=== PATIENT | male | born 1965 | race Caucasian/White ===

== ENCOUNTER 2016-04-14 08:05 | Inpatient (IN) | payer OTHER ==
[2016-04-14 10:57] VITALS: BMI 23.7
--- NOTE | 2016-04-14 12:36 | HP ---
COWS - Scale Resting Pulse: 1= [place] 81-100 Sweatin= Chills/Flushing Restless Observation: 3= Extraneous Movement Pupil Size: 2= Moderately Dilated Bone or Joint Aches: 4=Acute Joint/Muscle Pain Runny Nose/ Eye Tearin= Runny Nose/Eyes GI Upset > 30mins: 2= Nausea/Diarrhea (NO DIARRHEA) Tremor Observation: 1= Tremor [place], Not Seen Yawning Observation: 1= 1-2x During Session Anxiety or Irritability: 2=Irritable/Anxious Goose Flesh Skin: 0=Smooth Skin COWS Score: 19 Admission ROS S - HPI Chief Complaint: DETOX TX FOR HEROIN,COCAINE AND MARIJUANA DEPENDENCE Allergies/Adverse Reactions: Allergies Allergy/AdvReac Type Severity Reaction Status Date / Time cheese Allergy Mild Nausea Verified 04/14/16 10:43 No Known Drug Allergies Allergy Verified 04/14/16 10:43 History of Present Illness: 50 Y/O MALE WITH A HX OF HEROIN,COCAINE AND MARIJUANA DEPENDENCE SEEKING DETOX [place]. Exam Limitations: No Limitations - Ebola screening Have you traveled outside of the country in the last 21 days: No Have you had contact with anyone from an Ebola affected area: No Have you been sick,other than usual withdrawal symptoms: No Do you have a fever: No - Review of Systems Constitutional: Chills, Night Sweats, Changes in sleep, Unintentional Wgt. Loss EENT: reports: Nose Congestion Respiratory: reports: No Symptoms reported Cardiac: reports: No Symptoms Reported GI: reports: Constipated, Diarrhea, Nausea, Vomiting : reports: No Symptoms Reported Musculoskeletal: reports: Back Pain, Joint Pain, Muscle Pain Integumentary: reports: No Symptoms Reported Neuro: reports: Headache, Unsteady Gait, Dizziness, Other (HX SEVERE RLS-- RESTLESS LEG SYNDROME) Endocrine: reports: No Symptoms Reported Hematology: reports: No Symptoms Reported Psychiatric: reports: Orientated x3, Agitated, Anxious Other Systems: Reviewed and Negative Patient History - Patient Medical History Hx Anemia: No Hx Asthma: No Hx Chronic Obstructive Pulmonary Disease (COPD): No Hx Cancer: No Hx Cardiac Disorders: No Hx Congestive Heart Failure: No Hx Hypertension: No Hx Hypercholesterolemia: No Hx Pacemaker: No HX Cerebrovascular Accident: No Hx Seizures: No Hx Dementia: No Hx Diabetes: No Hx Gastrointestinal Disorders: No Hx Liver Disease: No Hx Genitourinary Disorders: No Hx Sexually Transmitted Disorders: No Hx Renal Disease (ESRD): No Hx Thyroid Disease: No Hx Human Immunodeficiency Virus (HIV): No (NEGATIVE HX) Hx Hepatitis C: No Hx Depression: No Hx Suicide Attempt: No (DENIES) Hx Bipolar Disorder: No Hx Schizophrenia: No - Patient Surgical History Past Surgical History: Yes Hx Neurologic Surgery: No Hx Cataract Extraction: No Hx Cardiac Surgery: No Hx Lung Surgery: No Hx Breast Surgery: No Hx Breast Biopsy: No Hx Abdominal Surgery: No Hx Appendectomy: Yes (IN 1999) Hx Cholecystectomy: No Hx Genitourinary Surgery: No Hx Section: No Hx Orthopedic Surgery: No Anesthesia Reaction: No - PPD History Previous Implant?: Yes Documented Results: Negative w/o proof Date: 07/29/14 PPD to be Administered?: Yes - Reproductive History Patient is a Female of Child Bearing Age (11 -55 yrs old): No (MALE) - Smoking Cessation Smoking history: Current every day smoker Have you smoked in the past 12 months: Yes Aproximately how many cigarettes per day: 10 Cigars Per Day: 0 Hx Chewing Tobacco Use: No Initiated information on smoking cessation: Yes 'Breaking Loose' booklet given: 04/14/16 - Substance & Tx. History Hx Alcohol Use: Yes ("BEER SOMETIMES BUT NOT MY CHOICE") Hx Substance Use: Yes (HEROIN/COCAINE/MARIJUANA) Substance Use Type: Cocaine, Heroin, Marijuana Hx Substance Use Treatment: Yes ([facility] DETOX) - Substances Abused Heroin Route: Inhalation Frequency: Daily Amount used: 7-10 bags Age of first use: 47 Date of Last Use: 04/13/16 Cocaine Route: Inhalation Frequency: Daily Amount used: $100 Age of first use: 17 Date of Last Use: 04/13/16 Marijuana Route: Smoking Frequency: Daily Amount used: $10 Age of first use: 16 Date of Last Use: 04/13/16 Family Disease History - Family Disease History Family History: Denies (ADOPTED--"I NEVER MET MY REAL FAMILY".) Admission Physical Exam S - Vital Signs Vital Signs: Vital Signs - 24 hr 04/14/16 10:45 Temperature 98.2 F Pulse Rate 82 Respiratory 20 Rate Blood Pressure 127/71 - Physical General Appearance: Yes: Moderate Distress, Irritable, Anxious HEENTM: Yes: EOMI, Normocephalic, SUKHDEEP, Pharynx Normal Respiratory: Yes: Chest Non-Tender, Lungs Clear, Normal Breath Sounds, No Respiratory Distress Neck: Yes: Supple, Trachea in good position Cardiology: Yes: Regular Rhythm, Regular Rate, S1, S2 Abdominal: Yes: Normal Bowel Sounds, Non Tender, Flat, Soft Genitourinary: Yes: Other (N/C) Back: Yes: Within Normal Limits Musculoskeletal: Yes: full range of Motion, Gait Steady Extremities: Yes: Normal Range of Motion, Non-Tender 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: 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: 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, Fully Oriented, Alert, Motor Strength 5/5 Integumentary: Yes: Dry, Warm Lymphatic: Yes: Within Normal Limits - Diagnostic (1) Alcohol dependence with uncomplicated withdrawal Current Visit: No Status: Inactive (2) Cannabis dependence, uncomplicated Current Visit: Yes Status: Acute (3) Cocaine dependence, uncomplicated Current Visit: Yes Status: Acute (4) Methadone maintenance therapy patient Current Visit: No Status: Inactive (5) Opioid dependence with withdrawal Current Visit: Yes Status: Acute (6) Nicotine dependence Current Visit: Yes Status: Chronic Qualifiers: Nicotine product type: cigarettes Substance use status: uncomplicated Qualified Code(s): F17.210 - Nicotine dependence, cigarettes, uncomplicated (7) Restless leg syndrome Current Visit: Yes Status: Chronic Cleared for Admission [facility] - Detox or Rehab [facility] Level of Care: Medically Managed Detox Regimen/Protocol: Methadone [facility] Breath Alcohol Content Breath Alcohol Content: 0 Urine Drug Screen - Results Drug Screen Negative: No Urine Drug Screen Results: THC-Marijuana, CLARKE-Cocaine, OPI-Opiates, OXY- Oxycodone
[2016-04-14] MEDS ORDERED: ACETAMINOPHEN 325 MG TABLET (FP) PO PRN (12:43)
[2016-04-14] MEDS ORDERED: LOPERAMIDE HCL 2 MG CAPSULE PO PRN (12:43)
[2016-04-14] MEDS ORDERED: MENTHOL/PHENOL 1 EACH UD MM PRN (12:43)
[2016-04-14] MEDS ORDERED: IBUPROFEN 400 MG TABLET (FP) PO PRN (12:43)
[2016-04-14] MEDS ORDERED: P-EPHED 60MG/TRIPROLIDI 2.5MG TABLET PO PRN (12:43)
[2016-04-14] MEDS ORDERED: MAG HYDROX/AL HYDROX/SIMETH 30 ML UNIT-DOSE CUP PO PRN (12:43)
[2016-04-14] MEDS ORDERED: guaiFENesin/D-METHORPHAN HB 10 ML UNIT-DOSE CUPS PO PRN (12:43)
[2016-04-14] MEDS ORDERED: MAGNESIUM CITRATE 300 ML BOTTLE PO PRN (12:43)
[2016-04-14] MEDS ORDERED: NICOTINE POLACRILEX 2 MG GUM BUC PRN (12:43)
[2016-04-14] MEDS ORDERED: diphenhydrAMINE HCL 50 MG CAPSULE PO PRN (12:43)
[2016-04-14] MEDS ORDERED: MAGNESIUM HYDROX 2400MG/30ML ORAL SUSPENSION 30 ML CUP PO PRN (12:43)
[2016-04-14] MEDS ORDERED: NICOTINE 14 MG/24 HOURS TOPICAL PATCH TD SCH (12:45)
[2016-04-14] MEDS ORDERED: METHADONE HCL 10 MG TABLET (FOR DETOX USE ONLY) PO ONE ×2 (13:05→23:00)
[2016-04-14] MEDS: diazePAM 5 MG TABLET PO PRN ×2 (14:53→22:31)
[2016-04-14] MEDS ORDERED: THIAMINE HCL 100 MG TABLET (FP) PO SCH (22:00)
--- NOTE | 2016-04-15 00:28 | EKG ---
Test Reason : Blood Pressure : / mmHG Vent. Rate : 061 BPM Atrial Rate : 061 BPM P-R Int : 138 ms QRS Dur : 090 ms QT Int : 416 ms P-R-T Axes : 040 057 054 degrees QTc Int : 418 ms NORMAL SINUS RHYTHM NORMAL ECG NO PREVIOUS ECGS AVAILABLE Confirmed by PIEDAD CHUNG MD ([id number]) on 04/15/2016 12:27:48 AM Referred By: Filemon Cuevas Confirmed By:PIEDAD CHUNG MD
[2016-04-15] MEDS: diazePAM 5 MG TABLET PO PRN (06:27)
--- NOTE | 2016-04-15 09:45 | PN ---
[facility] Progress Note Note: pt did not want to stay; refused to explain why and signed AMA.
--- NOTE | 2016-04-15 09:47 | DS ---
[facility] Detox Discharge Summary Admission Date: 04/14/16 Discharge Date: 04/15/16 (refused to complete detox) - History Present History: Cannabis Dependence, Cocaine Dependence, Opioid Dependence - Physical Exam Results Vital Signs: Vital Signs Temperature 96.2 F L 04/15/16 06:50 Pulse Rate 72 04/15/16 06:50 Respiratory Rate 18 04/15/16 06:50 Blood Pressure 112/65 04/15/16 06:50 O2 Sat by Pulse Oximetry (%) - Medication Discharge Medications: Ambulatory Orders NK [No Known Home Medication] 04/14/16 - Diagnosis (1) Cannabis dependence, uncomplicated Current Visit: Yes Status: Chronic (2) Cocaine dependence, uncomplicated Current Visit: Yes Status: Chronic (3) Opioid dependence with withdrawal Current Visit: Yes Status: Chronic (4) Nicotine dependence Current Visit: Yes Status: Chronic Qualifiers: Nicotine product type: cigarettes Substance use status: uncomplicated Qualified Code(s): F17.210 - Nicotine dependence, cigarettes, uncomplicated (5) Restless leg syndrome Current Visit: Yes Status: Chronic (6) Narcotic withdrawal Current Visit: No Status: Acute (7) Polysubstance (including opioids) dependence with physiological dependence Current Visit: No Status: Acute (8) Chronic alcoholism Current Visit: Yes Status: Chronic Qualifiers: Substance use status: uncomplicated Qualified Code(s): F10.20 - Alcohol dependence, uncomplicated - AMA Did Patient Leave Against Medical Advice: Yes
[2016-04-15] MEDS ORDERED: METHADONE HCL 10 MG TABLET (FOR DETOX USE ONLY) PO ONE (10:00)
[2016-04-15] MEDS ORDERED: PRENATAL VITAMINS W/ FOLIC ACID TABLET (FP) PO SCH (10:00)
[2016-04-15 10:21] LABS: WHITE BLOOD COUNT 8.5 K/mm3 (4.0-10.0)
[2016-04-15 10:22] LABS: MCH 29.7 pg (25.7-33.7); MCHC 33.3 g/dl (32.0-35.9); MEAN CELL VOLUME 88.9 fl (80-96); MEAN PLT VOLUME 9.2 fl (7.5-11.1); PLATELET COUNT 265 K/MM3 (134-434)
[2016-04-15 10:28] VITALS: BP 139/86; PULSE 100; TEMP 98.4
[2016-04-15 10:35] LABS: ALBUMIN 3.7 g/dl (3.4-5.0); ALK PHOS 80 U/L (45-117); ANION GAP 7 (8-16); BILIRUBIN,TOTAL 0.3 mg/dL (0.2-1.0); CALCIUM 8.8 mg/dL (8.5-10.1); CO2 32 mmol/L (21-32); CREATININE 0.9 mg/dL (0.7-1.3); GLUCOSE,RANDOM 75 mg/dL (74-106); SGOT/AST 10 U/L (15-37); SGPT/ALT 18 U/L (12-78)
[2016-04-15 11:02] LABS: HIV 1 & 2 AB NEGATIVE; HIV 1 AGp24 NEGATIVE
[2016-04-16] MEDS ORDERED: METHADONE HCL 5 MG TABLET (FOR DETOX USE ONLY) PO ONE (10:00)
[2016-04-17] MEDS ORDERED: METHADONE HCL 5 MG TABLET (FOR DETOX USE ONLY) PO ONE (10:00)
[2016-04-18] MEDS ORDERED: METHADONE HCL 10 MG TABLET (FOR DETOX USE ONLY) PO ONE (10:00)
[2016-04-19] MEDS ORDERED: METHADONE HCL 5 MG TABLET (FOR DETOX USE ONLY) PO ONE (06:00)
== END 2016-04-15 09:39 | disposition left against medical advice (07) | DRG 770 ==
LOC: YASAS 08:05 → Y6N 12:10
PROVIDERS: ADMIT Internal Medicine; ATTEND Internal Medicine
PROC: HZ2ZZZZ Detoxification Services for Substance Abuse Treatment (ICD-10-PCS; principal; 2016-04-15)
DX: F11.23 Opioid dependence with withdrawal (principal); F14.20 Cocaine dependence, uncomplicated; F12.20 Cannabis dependence, uncomplicated; F17.210 Nicotine dependence, cigarettes, uncomplicated; F10.20 Alcohol dependence, uncomplicated; G25.81 Restless legs syndrome
CPT/HCPCS: 36415; 80053; 85027; 86593; 87389; 93005; 93010

== ENCOUNTER 2017-11-30 11:21 | Inpatient (IN) | payer OTHER ==
[2017-11-30 12:00] VITALS: BMI 30.8
--- NOTE | 2017-11-30 13:00 | HP ---
COWS - Scale Resting Pulse: 1= [place] 81-100 Sweatin=Flushed/Facial Moisture Restless Observation: 3= Extraneous Movement Pupil Size: 1= Pupils >than Normal Bone or Joint Aches: 2= Severe Diffuse Aches Runny Nose/ Eye Tearin= Runny Nose/Eyes GI Upset > 30mins: 2= Nausea/Diarrhea Tremor Observation: 2= Slight Tremor Visible Yawning Observation: 1= 1-2x During Session Anxiety or Irritability: 2=Irritable/Anxious Goose Flesh Skin: 0=Smooth Skin COWS Score: 18 CIWA Score - CIWA Score Nausea/Vomitin Muscle Tremors: 3 Anxiety: 3 Agitation: 2 Paroxysmal Sweats: 1-Minimal Palms Moist Orientation: 0-Oriented Tacttile Disturbances: 1-Very Mild Itch/Numbness Auditory Disturbances: 1-Very Mild Visual Disturbances: 0-None Headache: 2-Mild CIWA-Ar Total Score: 16 Admission ROS [facility] - HPI Chief Complaint: i need help to stop using heroin,alcohol,cocaine and marijuana Allergies/Adverse Reactions: Allergies Allergy/AdvReac Type Severity Reaction Status Date / Time No Known Drug Allergies Allergy Verified 11/30/17 12:11 cheese AdvReac Severe Vomiting Verified 11/30/17 12:11 History of Present Illness: this 52 years old male with heroin,alcohol,cocaine and marijuana dependence, seeking detox, [facility] to 01/16/17 not completed restless leg syndrome anxiety,depression,insomnia nicotine dependence multiple admissions in detox but relapsing no significant period of sobriety Exam Limitations: No Limitations - Ebola screening Have you traveled outside of the country in the last 21 days: No Have you had contact with anyone from an Ebola affected area: No Have you been sick,other than usual withdrawal symptoms: No Do you have a fever: No - Review of Systems Constitutional: Chills, Loss of Appetite, Malaise, Night Sweats, Changes in sleep, Weakness EENT: reports: Tearing, Nose Congestion Respiratory: reports: No Symptoms reported Cardiac: reports: No Symptoms Reported GI: reports: Diarrhea, Nausea, Vomiting, Abdominal cramping : reports: No Symptoms Reported Musculoskeletal: reports: Back Pain, Joint Pain, Muscle Pain, Joint Stiffness Integumentary: reports: Dryness Neuro: reports: Headache, Tremors Endocrine: reports: No Symptoms Reported Hematology: reports: No Symptoms Reported Psychiatric: reports: No Sypmtoms Reported (insomnia), Judgement Intact, Mood/ Affect Appropiate, Anxious, Depressed Patient History - Patient Medical History Hx Anemia: Yes (no med) Hx Asthma: No Hx Chronic Obstructive Pulmonary Disease (COPD): No Hx Cancer: No Hx Cardiac Disorders: No Hx Congestive Heart Failure: No Hx Hypertension: No Hx Hypercholesterolemia: No Hx Pacemaker: No HX Cerebrovascular Accident: No Hx Seizures: No Hx Dementia: No Hx Diabetes: No Hx Gastrointestinal Disorders: No Hx Liver Disease: No Hx Genitourinary Disorders: No Hx Sexually Transmitted Disorders: No Hx Renal Disease (ESRD): No Hx Thyroid Disease: No Hx Human Immunodeficiency Virus (HIV): No (NEGATIVE HX last in 2012) Hx Hepatitis C: No Hx Depression: No Hx Suicide Attempt: No Hx Bipolar Disorder: No Hx Schizophrenia: No Other Medical History: no suicidal,no homicidal - Patient Surgical History Past Surgical History: Yes Hx Neurologic Surgery: No Hx Cataract Extraction: No Hx Cardiac Surgery: No Hx Lung Surgery: No Hx Breast Surgery: No Hx Breast Biopsy: No Hx Abdominal Surgery: No Hx Appendectomy: Yes (IN 1999) Hx Cholecystectomy: No Hx Genitourinary Surgery: No Hx Section: No Hx Orthopedic Surgery: No Anesthesia Reaction: No - PPD History Previous Implant?: Yes Documented Results: Negative w/o proof Implanted On Prior [facility] Admission?: Yes Date: 07/29/14 PPD to be Administered?: Yes - Smoking Cessation Smoking history: Current every day smoker Have you smoked in the past 12 months: Yes Aproximately how many cigarettes per day: 20 Cigars Per Day: 0 Hx Chewing Tobacco Use: No Initiated information on smoking cessation: Yes 'Breaking Loose' booklet given: 11/30/17 - Substance & Tx. History Hx Alcohol Use: Yes Hx Substance Use: Yes Substance Use Type: Alcohol, Cocaine, Heroin, Marijuana Hx Substance Use Treatment: Yes (01/15/17 to 01/16/17 [facility] not completed) - Substances Abused Heroin Route: Inhalation Frequency: Daily Amount used: 5-10 bags Age of first use: 27 Date of Last Use: 11/29/17 Cocaine Route: Inhalation Frequency: Daily Amount used: $100 Age of first use: 17 Date of Last Use: 11/30/17 Alcohol-Tequila/cognac, beer Route: Oral Frequency: Daily Amount used: 1 liter/1 (16 oz.) Age of first use: 13 Date of Last Use: 11/29/17 Marijuana Route: Smoking Frequency: Daily Amount used: $20 Age of first use: 17 Date of Last Use: 11/30/17 Family Disease History - Family Disease History Family History: Denies Admission Physical Exam [facility] - Vital Signs Vital Signs: Vital Signs - 24 hr 11/30/17 11:58 Temperature 98.5 F Pulse Rate 89 Respiratory 20 Rate Blood Pressure 125/81 - Physical General Appearance: Yes: Moderate Distress, Tremorous, Irritable, Sweating, Anxious HEENTM: Yes: Normal ENT Inspection, SUKHDEEP, Pharynx Normal Respiratory: Yes: Lungs Clear, Normal Breath Sounds, No Respiratory Distress Neck: Yes: Within Normal Limits, Supple, Trachea in good position Breast: Yes: Within Normal Limits Cardiology: Yes: Within Normal Limits, Regular Rhythm, Regular Rate, S1, S2 Abdominal: Yes: Normal Bowel Sounds, Non Tender, Soft, Surgical Scar Genitourinary: Yes: Within Normal Limits Back: Yes: Muscle Spasm Musculoskeletal: Yes: Back pain, Joint Stiffness, Muscle Pain Extremities: Yes: Tremors 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, Fully Oriented, Alert, Motor Strength 5/5 Integumentary: Yes: Dry Lymphatic: Yes: Within Normal Limits - Diagnostic (1) Opioid dependence with withdrawal Current Visit: No Status: Acute (2) Alcohol dependence with uncomplicated withdrawal Current Visit: Yes Status: Acute (3) Cocaine dependence Current Visit: Yes Status: Acute (4) Cannabis dependence Current Visit: Yes Status: Acute (5) Anxiety and depression Current Visit: Yes Status: Acute (6) Insomnia Current Visit: Yes Status: Acute (7) Nicotine dependence Current Visit: No Status: Chronic Qualifiers: Nicotine product type: cigarettes Substance use status: uncomplicated Qualified Code(s): F17.210 - Nicotine dependence, cigarettes, uncomplicated Cleared for Admission [facility] - Detox or Rehab [facility] Level of Care: Medically Managed Detox Regimen/Protocol: Methadone/Librium [facility] Breath Alcohol Content Breath Alcohol Content: 0 Urine Drug Screen - Results Drug Screen Negative: No Urine Drug Screen Results: THC-Marijuana, CLARKE-Cocaine, OPI-Opiates, BAR- Barbiturates, OXY-Oxycodone
[2017-11-30] MEDS ORDERED: MAGNESIUM HYDROX 2400MG/30ML ORAL SUSPENSION 30 ML CUP PO PRN (13:15)
[2017-11-30] MEDS ORDERED: LOPERAMIDE HCL 2 MG CAPSULE PO PRN (13:15)
[2017-11-30] MEDS ORDERED: chlordiazePOXIDE HCL 25 MG CAPSULE PO PRN (13:15)
[2017-11-30] MEDS ORDERED: IBUPROFEN 400 MG TABLET (FP) PO PRN (13:15)
[2017-11-30] MEDS ORDERED: P-EPHED 60MG/TRIPROLIDI 2.5MG TABLET PO PRN (13:15)
[2017-11-30] MEDS ORDERED: MENTHOL/PHENOL 1 EACH UD MM PRN (13:15)
[2017-11-30] MEDS ORDERED: guaiFENesin/D-METHORPHAN HB 10 ML UNIT-DOSE CUPS PO PRN (13:15)
[2017-11-30] MEDS ORDERED: NICOTINE POLACRILEX 2 MG GUM BUC PRN (13:15)
[2017-11-30] MEDS ORDERED: MAGNESIUM CITRATE 300 ML BOTTLE PO PRN (13:15)
[2017-11-30] MEDS ORDERED: MAG HYDROX/AL HYDROX/SIMETH 30 ML UNIT-DOSE CUP PO PRN (13:15)
[2017-11-30] MEDS ORDERED: ACETAMINOPHEN 325 MG TABLET (FP) PO PRN (13:15)
[2017-11-30] MEDS ORDERED: hydrOXYzine PAMOATE 25 MG CAPSULE (FP) PO PRN (13:15)
[2017-11-30] MEDS ORDERED: CYCLOBENZAPRINE HCL 10 MG TABLET (FP) PO PRN (13:18)
[2017-11-30] MEDS ORDERED: METHADONE HCL 10 MG TABLET (FOR DETOX USE ONLY) PO ONE ×2 (13:50→23:00)
[2017-11-30] MEDS: NICOTINE 21 MG/24 HOURS TOPICAL PATCH TD SCH (14:32)
--- NOTE | 2017-11-30 18:09 | EKG ---
Test Reason : Blood Pressure : / mmHG Vent. Rate : 071 BPM Atrial Rate : 071 BPM P-R Int : 142 ms QRS Dur : 094 ms QT Int : 388 ms P-R-T Axes : 011 031 029 degrees QTc Int : 421 ms NORMAL SINUS RHYTHM MINIMAL VOLTAGE CRITERIA FOR LVH, MAY BE NORMAL VARIANT BORDERLINE ECG WHEN COMPARED WITH ECG OF 15-JAN-2017 20:02, NO SIGNIFICANT CHANGE WAS FOUND Confirmed by SHELDON BERRY, PIEDAD ([id number]) on 11/30/2017 6:09:24 PM Referred By: Confirmed By:PIEDAD CHUNG MD
[2017-11-30 18:23] LABS: URINE APPEARANCE TURBID; URINE BILIRUBIN NEGATIVE (<2.0 mg/dL); URINE COLOR YELLOW; URINE GLUCOSE (UA) NEGATIVE (NEGATIVE); URINE KETONE NEGATIVE (NEGATIVE); URINE LEUK ESTERASE NEGATIVE (NEGATIVE); URINE NITRITE NEGATIVE (NEGATIVE); URINE PROTEIN NEGATIVE (NEGATIVE)
[2017-11-30] MEDS: chlordiazePOXIDE HCL 25 MG CAPSULE PO SCH ×2 (18:38→22:29)
[2017-11-30] MEDS ORDERED: MELATONIN 5 MG TABLETS PO PRN (22:00)
[2017-11-30] MEDS ORDERED: THIAMINE HCL 100 MG TABLET (FP) PO SCH (22:00)
[2017-11-30] MEDS: cloNIDine HCL 0.1 MG TABLET PO SCH (22:29)
[2017-12-01] MEDS: chlordiazePOXIDE HCL 25 MG CAPSULE PO SCH ×2 (06:01→10:13)
[2017-12-01 06:49] VITALS: TEMP 97.7
[2017-12-01 09:21] VITALS: PULSE 64
[2017-12-01] MEDS ORDERED: PRENATAL VITAMINS W/ FOLIC ACID TABLET (FP) PO SCH (10:00)
[2017-12-01] MEDS ORDERED: METHADONE HCL 10 MG TABLET (FOR DETOX USE ONLY) PO SCH (10:00)
[2017-12-01] MEDS: NICOTINE 21 MG/24 HOURS TOPICAL PATCH TD SCH (10:12)
[2017-12-01] MEDS: cloNIDine HCL 0.1 MG TABLET PO SCH (10:12)
[2017-12-01 10:45] LABS: HEMATOCRIT 41.5 % (35.4-49); MCH 28.5 pg (25.7-33.7); MCHC 33.6 g/dl (32.0-35.9); MEAN CELL VOLUME 84.9 fl (80-96); MEAN PLT VOLUME 9.5 fl (7.5-11.1); PLATELET COUNT 239 K/MM3 (134-434); RBC 4.89 M/mm3 (4.00-5.60); RDW 14.6 % (11.9-15.9); WHITE BLOOD COUNT 8.1 K/mm3 (4.0-10.0)
[2017-12-01 11:25] LABS: ALK PHOS 92 U/L (45-117); ANION GAP 8 MMOL/L (8-16); BILIRUBIN,TOTAL 0.4 mg/dL (0.2-1); BLOOD UREA NITROGEN 20 mg/dL (7-18); CALCIUM 8.8 mg/dL (8.5-10.1); CHLORIDE 105 mmol/L (98-107); CO2 25 mmol/L (21-32); CREATININE 1.1 mg/dL (0.55-1.3); GLUCOSE,RANDOM 124 mg/dL (74-106); POTASSIUM 4.6 mmol/L (3.5-5.1); SGOT/AST 16 U/L (15-37); SGPT/ALT 23 U/L (13-61); SODIUM 139 mmol/L (136-145); TOT PROT 7.5 g/dl (6.4-8.2)
--- NOTE | 2017-12-01 11:40 | CONSULT ---
[facility] Psychiatric Consult - Data Date of interview: 12/01/17 Admission source: [facility] Identifying data: Patient is a 52 year old single male, without children, domiciled, and unemployed. This is one of multiple admissions for patient. Pt. admitted to for alcohol, cocaine, and opiate dependence. Substance Abuse History: Smoking Cessation. Smoking history: Current every day smoker. Have you smoked in the past 12 months: Yes. Aproximately how many cigarettes per day: 20. Cigars Per Day: 0. Hx Chewing Tobacco Use: No. Initiated information on smoking cessation: Yes. 'Breaking Loose' booklet given : 11/30/17. - Substance & Tx. History. Hx Alcohol Use: Yes. Hx Substance Use : Yes. Substance Use Type: Alcohol, Cocaine, Heroin, Marijuana. Hx Substance Use Treatment: Yes (01/15/17 to 01/16/17 [facility] not completed). - Substances Abused. Heroin. Route: Inhalation. Frequency: Daily. Amount used: 5-10 bags. Age of first use: 27. Date of Last Use: 11/29/17. Cocaine. Route: Inhalation. Frequency: Daily. Amount used: $100. Age of first use: 17. Date of Last Use: 11/30/17. Alcohol-Tequila/cognac, beer. Route: Oral. Frequency: Daily. Amount used: 1 liter/1 (16 oz.). Age of first use: 13. Date of Last Use: 11/29/17. Marijuana. Route: Smoking. Frequency: Daily. Amount used: $20. Age of first use: 17. Date of Last Use: 11/30/17 Medical History: Anemia, Appendectomy Psychiatric History: Patient denies h/o psychiatric hospitalization, outpatient care, and suicide attempt. Physical/Sexual Abuse/Trauma History: denies. Mental Status Exam - Mental Status Exam Alert and Oriented to: Time, Place, Person Cognitive Function: Good Patient Appearance: Well Groomed Mood: Withdrawn, Euthymic Affect: Mood Congruent Patient Behavior: Guarded, Cooperative Speech Pattern: Appropriate Voice Loudness: Moderately Soft/Quiet Thought Process: Intact, Goal Oriented Thought Disorder: Not Present Hallucinations: Denies Suicidal Ideation: Denies Homicidal Ideation: Denies Insight/Judgement: Poor Sleep: Fair Appetite: Fair Muscle strength/Tone: Normal Gait/Station: Normal Psychiatric Findings - Problem List ([place] 1, 2,3) (1) Substance induced mood disorder Current Visit: Yes Status: Acute (2) Alcohol dependence with uncomplicated withdrawal Current Visit: Yes Status: Acute (3) Cannabis dependence Current Visit: Yes Status: Acute (4) Cocaine dependence Current Visit: Yes Status: Acute (5) Opioid dependence with withdrawal Current Visit: Yes Status: Acute - Initial Treatment Plan Initial Treatment Plan: Psychoeducation provided. Detoxification in progress. Observation.
[2017-12-01 13:10] VITALS: BP 117/67
--- NOTE | 2017-12-01 14:22 | DS ---
[facility] Detox Discharge Summary Admission Date: 11/30/17 Discharge Date: 12/01/17 - History Present History: Alcohol Dependence, Opioid Dependence Additional Comments: 52 years old male admitted on 11/30/17 for opioid and alcohol withdrawal sx insists to terminate the detox regimen wants to go to methadone maintenance program alert oriented x 3 no acute distress case discuss with counselor nurse that methadone maintenance program intake arranged for 12/02/17 alert oriented x 3 no acute distress - Physical Exam Results Vital Signs: Vital Signs Temperature 97.7 F 12/01/17 13:09 Pulse Rate 64 12/01/17 13:09 Respiratory Rate 18 12/01/17 13:09 Blood Pressure 117/67 12/01/17 13:09 O2 Sat by Pulse Oximetry (%) Pertinent Admission Physical Exam Findings: alcohol opiate withdrawal sx Vital Signs Temperature 97.7 F 12/01/17 13:09 Pulse Rate 64 12/01/17 13:09 Respiratory Rate 18 12/01/17 13:09 Blood Pressure 117/67 12/01/17 13:09 O2 Sat by Pulse Oximetry (%) Laboratory Last Values WBC 8.1 K/mm3 (4.0-10.0) 12/01/17 06:00 RBC 4.89 M/mm3 (4.00-5.60) 12/01/17 06:00 Hgb 14.0 GM/dL (11.7-16.9) 12/01/17 06:00 Hct 41.5 % (35.4-49) 12/01/17 06:00 MCV 84.9 fl (80-96) 12/01/17 06:00 MCH 28.5 pg (25.7-33.7) 12/01/17 06:00 MCHC 33.6 g/dl (32.0-35.9) 12/01/17 06:00 RDW 14.6 % (11.9-15.9) 12/01/17 06:00 Plt Count 239 K/MM3 (134-434) 12/01/17 06:00 MPV 9.5 fl (7.5-11.1) 12/01/17 06:00 Sodium 139 mmol/L (136-145) 12/01/17 06:00 Potassium 4.6 mmol/L (3.5-5.1) 12/01/17 06:00 Chloride 105 mmol/L (98-107) 12/01/17 06:00 Carbon Dioxide 25 mmol/L (21-32) 12/01/17 06:00 Anion Gap 8 MMOL/L (8-16) 12/01/17 06:00 BUN 20 mg/dL (7-18) H 12/01/17 06:00 Creatinine 1.1 mg/dL (0.55-1.3) 12/01/17 06:00 Creat Clearance w eGFR > 60 (>60) 12/01/17 06:00 Random Glucose 124 mg/dL (74-106) H 12/01/17 06:00 Calcium 8.8 mg/dL (8.5-10.1) 12/01/17 06:00 Total Bilirubin 0.4 mg/dL (0.2-1) 12/01/17 06:00 AST 16 U/L (15-37) 12/01/17 06:00 ALT 23 U/L (13-61) 12/01/17 06:00 Alkaline Phosphatase 92 U/L (45-117) 12/01/17 06:00 Total Protein 7.5 g/dl (6.4-8.2) 12/01/17 06:00 Albumin 4.0 g/dl (3.4-5.0) 12/01/17 06:00 Urine Color Yellow 11/30/17 12:08 Urine Appearance Turbid 11/30/17 12:08 Urine pH 5.0 (5.0-8.0) 11/30/17 12:08 Ur Specific [place] 1.033 (1.001-1.035) 11/30/17 12:08 Urine Protein Negative (NEGATIVE) 11/30/17 12:08 Urine Glucose (UA) Negative (NEGATIVE) 11/30/17 12:08 Urine Ketones Negative (NEGATIVE) 11/30/17 12:08 Urine Blood Negative (NEGATIVE) 11/30/17 12:08 Urine Nitrite Negative (NEGATIVE) 11/30/17 12:08 Urine Bilirubin Negative (<2.0 mg/dL) 11/30/17 12:08 Urine Urobilinogen 2.0 mg/dL (0.2-1.0) 11/30/17 12:08 Ur Leukocyte Esterase Negative (NEGATIVE) 11/30/17 12:08 RPR Titer Nonreactive (NONREACTIVE) 12/01/17 06:00 HIV 1&2 Antibody Screen Negative 11/30/17 12:08 HIV P24 Antigen Negative 11/30/17 12:08 lab noted - Treatment Hospital Course: Detox Protocol Followed, Responded well Patient has Accepted a Rehab Referral to: methadone maintenance program - Medication Discharge Medications: Ambulatory Orders NK [No Known Home Medication] 04/14/16 - Diagnosis (1) Alcohol dependence with uncomplicated withdrawal Current Visit: Yes Status: Acute (2) Nicotine dependence Current Visit: Yes Status: Acute Qualifiers: Nicotine product type: cigarettes Substance use status: in withdrawal Qualified Code(s): F17.213 - Nicotine dependence, cigarettes, with withdrawal (3) Opioid dependence with withdrawal Current Visit: Yes Status: Acute (4) Substance induced mood disorder Current Visit: Yes Status: Suspected - AMA Did Patient Leave Against Medical Advice: Yes
[2017-12-01] MEDS ORDERED: chlordiazePOXIDE HCL 25 MG CAPSULE PO SCH (17:00)
[2017-12-02] MEDS ORDERED: METHADONE HCL 5 MG TABLET (FOR DETOX USE ONLY) PO SCH (10:00)
[2017-12-02] MEDS ORDERED: chlordiazePOXIDE 5 MG CAPSULE PO SCH (17:00)
[2017-12-03] MEDS ORDERED: chlordiazePOXIDE HCL 10 MG CAPSULE PO SCH (17:00)
[2017-12-04] MEDS ORDERED: METHADONE HCL 10 MG TABLET (FOR DETOX USE ONLY) PO SCH (10:00)
[2017-12-05] MEDS ORDERED: METHADONE HCL 5 MG TABLET (FOR DETOX USE ONLY) PO SCH (06:00)
== END 2017-12-01 14:02 | disposition left against medical advice (07) | DRG 770 ==
LOC: YASAS 11:21 → Y6N 13:37
PROC: HZ2ZZZZ Detoxification Services for Substance Abuse Treatment (ICD-10-PCS; principal; 2017-11-30)
DX: F11.23 Opioid dependence with withdrawal (principal); F10.230 Alcohol dependence with withdrawal, uncomplicated; F14.20 Cocaine dependence, uncomplicated; F12.20 Cannabis dependence, uncomplicated; F17.213 Nicotine dependence, cigarettes, with withdrawal; F19.24 Other psychoactive substance dependence with psychoactive substance-induced mood disorder; F41.8 Other specified anxiety disorders; Z86.2 Personal history of diseases of the blood and blood-forming organs and certain disorders involving the immune mechanism
CPT/HCPCS: 36415; 80053; 81003; 85027; 86593; 87389; 93005; 93010; J0735

== ENCOUNTER 2020-04-24 12:12 | Inpatient (IN) | payer OTHER ==
[2020-04-24] MEDS ORDERED: ONDANSETRON *ODT* 4 MG TABLET SL PRN (14:21)
[2020-04-24] MEDS ORDERED: MENTHOL/PHENOL 1 EACH UD MM PRN (14:21)
[2020-04-24] MEDS ORDERED: METHADONE HCL 10 MG TABLET (FOR DETOX USE ONLY) PO ONE (14:21)
[2020-04-24] MEDS ORDERED: METHOCARBAMOL 500 MG TABLET PO PRN (14:21)
[2020-04-24] MEDS ORDERED: cloNIDine HCL 0.1 MG TABLET PO PRN (14:21)
[2020-04-24] MEDS ORDERED: BISMUTH SUBSALICYLATE 262 MG/15 ML BTL PO PRN (14:21)
[2020-04-24] MEDS ORDERED: MAG HYDROX/AL HYDROX/SIMETH 30 ML UNIT-DOSE CUP PO PRN (14:21)
[2020-04-24] MEDS ORDERED: MAGNESIUM HYDROX 2400MG/30ML ORAL SUSPENSION 30 ML CUP PO PRN (14:21)
[2020-04-24] MEDS ORDERED: ACETAMINOPHEN 325 MG TABLET (FP) PO PRN ×2 (14:21)
[2020-04-24] MEDS ORDERED: MAGNESIUM CITRATE 300 ML BOTTLE PO PRN (14:21)
[2020-04-24] MEDS ORDERED: NICOTINE POLACRILEX 2 MG GUM BUC PRN (14:21)
[2020-04-24] MEDS ORDERED: IBUPROFEN 400 MG TABLET (FP) PO PRN (14:21)
[2020-04-24] MEDS: PRENATAL VITAMINS W/ FOLIC ACID TABLET (FP) PO SCH (15:41)
[2020-04-24] MEDS: hydrOXYzine PAMOATE 25 MG CAPSULE (FP) PO SCH ×2 (17:49→22:23)
[2020-04-24] MEDS: MELATONIN 5 MG TABLETS PO SCH (22:23)
[2020-04-24] MEDS: THIAMINE HCL 100 MG TABLET (FP) PO SCH (22:23)
[2020-04-25] MEDS: hydrOXYzine PAMOATE 25 MG CAPSULE (FP) PO SCH ×2 (06:22→10:09)
[2020-04-25] MEDS ORDERED: METHADONE HCL 10 MG TABLET (FOR DETOX USE ONLY) ONE (08:58)
[2020-04-25] MEDS ORDERED: METHADONE HCL 5 MG TABLET (FOR DETOX USE ONLY) ONE (08:58)
[2020-04-25] MEDS ORDERED: METHADONE (DETOX) 20 MG, METHADONE (DETOX) 5 MG PO ONE (10:00)
[2020-04-25] MEDS: PRENATAL VITAMINS W/ FOLIC ACID TABLET (FP) PO SCH (10:06)
[2020-04-25] MEDS: NICOTINE 21 MG/24 HOURS TOPICAL PATCH TD SCH (10:07)
[2020-04-25 11:19] LABS: POTASSIUM 3.9 mmol/L (3.5-5.1)
[2020-04-25 11:22] LABS: CALCIUM 7.9 mg/dL (8.5-10.1); HEMATOCRIT 36.3 % (35.4-49); HEMOGLOBIN 12.5 GM/dL (11.7-16.9); MCH 30.9 pg (25.7-33.7); MCHC 34.4 g/dl (32.0-35.9); MEAN CELL VOLUME 89.9 fl (80-96); MEAN PLT VOLUME 9.4 fl (7.5-11.1); PLATELET COUNT 180 K/MM3 (134-434); RBC 4.04 M/mm3 (4.00-5.60); RDW 14.1 % (11.9-15.9); WHITE BLOOD COUNT 6.4 K/mm3 (4.0-10.0)
[2020-04-25 11:23] LABS: BLOOD UREA NITROGEN 13.4 mg/dL (7-18)
[2020-04-25 11:27] LABS: BILIRUBIN,TOTAL 0.8 mg/dL (0.2-1); TOT PROT 5.6 g/dl (6.4-8.2)
[2020-04-25] MEDS: MELATONIN 5 MG TABLETS PO SCH (22:15)
[2020-04-25] MEDS: THIAMINE HCL 100 MG TABLET (FP) PO SCH (22:15)
[2020-04-25] MEDS: hydrOXYzine PAMOATE 25 MG CAPSULE (FP) PO PRN (22:16)
[2020-04-26] MEDS: PRENATAL VITAMINS W/ FOLIC ACID TABLET (FP) PO SCH (09:39)
[2020-04-26] MEDS: NICOTINE 21 MG/24 HOURS TOPICAL PATCH TD SCH (09:40)
[2020-04-26] MEDS: hydrOXYzine PAMOATE 25 MG CAPSULE (FP) PO PRN ×2 (09:41→22:15)
[2020-04-26] MEDS ORDERED: METHADONE HCL 10 MG TABLET (FOR DETOX USE ONLY) PO ONE (10:00)
[2020-04-26] MEDS: MELATONIN 5 MG TABLETS PO SCH (22:14)
[2020-04-26] MEDS: THIAMINE HCL 100 MG TABLET (FP) PO SCH (22:14)
[2020-04-26] MEDS: METHOCARBAMOL 750 MG TAB PO PRN (22:15)
[2020-04-27] MEDS ORDERED: METHADONE HCL 10 MG TABLET (FOR DETOX USE ONLY) ONE (09:36)
[2020-04-27] MEDS ORDERED: METHADONE HCL 5 MG TABLET (FOR DETOX USE ONLY) ONE (09:36)
[2020-04-27] MEDS ORDERED: METHADONE (DETOX) 10 MG, METHADONE (DETOX) 5 MG PO ONE (10:00)
[2020-04-27] MEDS: PRENATAL VITAMINS W/ FOLIC ACID TABLET (FP) PO SCH (10:03)
[2020-04-27] MEDS: METHOCARBAMOL 750 MG TAB PO PRN (10:05)
[2020-04-27] MEDS: hydrOXYzine PAMOATE 25 MG CAPSULE (FP) PO PRN ×2 (10:06→17:02)
[2020-04-27] MEDS: NICOTINE 21 MG/24 HOURS TOPICAL PATCH TD SCH (11:20)
[2020-04-27 17:20] VITALS: BP 125/70; PULSE 79; TEMP 96.4
[2020-04-28] MEDS ORDERED: METHADONE HCL 10 MG TABLET (FOR DETOX USE ONLY) PO ONE (10:00)
[2020-04-29] MEDS ORDERED: METHADONE HCL 5 MG TABLET (FOR DETOX USE ONLY) PO ONE (06:00)
== END 2020-04-27 18:08 | disposition left against medical advice (07) | DRG 770 ==
LOC: YASAS 12:12 → Y3N 14:54
PROVIDERS: ADMIT Allergy & Immunology; ATTEND Allergy & Immunology
PROC: HZ2ZZZZ Detoxification Services for Substance Abuse Treatment (ICD-10-PCS; principal; 2020-04-24)
DX: F11.23 Opioid dependence with withdrawal (principal); F14.20 Cocaine dependence, uncomplicated; F10.10 Alcohol abuse, uncomplicated; F16.10 Hallucinogen abuse, uncomplicated; F12.20 Cannabis dependence, uncomplicated; F17.210 Nicotine dependence, cigarettes, uncomplicated; Z59.0 Homelessness
CPT/HCPCS: 36415; 80053; 85027; 86780; C9803; U0003

== ENCOUNTER 2023-01-06 17:39 | Inpatient (IN) | payer OTHER ==
[2023-01-06 20:23] LABS: BASO % 0.2 % (0-2.0); EOS % 0.2 % (0-4.5); HEMATOCRIT 41.2 % (35.4-49); HEMOGLOBIN 13.8 GM/dL (11.7-16.9); LYMPH % 14.9 % (8-40); MCH 27.4 pg (25.7-33.7); MCHC 33.5 g/dl (32.0-35.9); MEAN CELL VOLUME 81.7 fl (80-96); MEAN PLT VOLUME 7.5 fl (7.5-11.1); MONO % 4.2 % (3.8-10.2); NEUT % 80.5 % (42.8-82.8); PLATELET COUNT 393 10^3/uL (134-434); RBC 5.04 M/mm3 (4.00-5.60); RDW 16.5 % (11.9-15.9); WHITE BLOOD COUNT 14.6 K/mm3 (4.0-10.0)
[2023-01-06 20:43] LABS: POTASSIUM 3.6 mmol/L (3.5-5.1)
[2023-01-06 20:45] LABS: BLOOD UREA NITROGEN 9.9 mg/dL (7-18); CALCIUM 8.6 mg/dL (8.5-10.1)
[2023-01-06 20:47] LABS: ALBUMIN 2.8 g/dl (3.4-5.0); MAGNESIUM 2.2 mg/dL (1.8-2.4)
[2023-01-06 20:49] LABS: CREATININE 0.7 mg/dL (0.55-1.3)
[2023-01-06 20:50] LABS: BILIRUBIN,TOTAL 0.4 mg/dL (0.2-1); TOT PROT 6.8 g/dl (6.4-8.2)
[2023-01-06] MEDS ORDERED: PIPERACILLIN/TAZOB 4.5 GM 4.5 GM in DEXTROSE 5%-WATER 100 ML IVPB ONE (23:28)
[2023-01-06] MEDS ORDERED: VANCOMYCIN 1,000 MG in DEXTROSE 5%-WATER - 250 ML IVPB ONE (23:28)
[2023-01-06 23:58] LABS: INR 1.17 (0.83-1.09); PROTHROMBIN TIME (PATIENT) 13.6 SEC (9.7-13.0)
[2023-01-07] LABS: ACTIVATED PTT 34.7 SECONDS (25.2-36.5)
[2023-01-07] MEDS ORDERED: VANCOMYCIN 1 GRAM (PRE-DOCKED) 1,000 MG/250 ML BAG IVPB ONE (01:00)
[2023-01-07] MEDS ORDERED: PIPERACILLIN/TAZOB 4.5 GM 4.5 GM in DEXTROSE 5%-WATER 100 ML IVPB SCH (04:00)
[2023-01-07] MEDS ORDERED: PIPERACILLIN/TAZOB 4.5 GM 4.5 GM/100 ML BAG IVPB ONE ×2 (04:39→10:59)
[2023-01-07] MEDS: PIPERACILLIN/TAZOB 4.5 GM 4.5 GM in DEXTROSE 5%-WATER 100 ML IVPB SCH ×2 (04:52→10:40)
[2023-01-07 05:23] LABS: URINE APPEARANCE CLEAR; URINE BILIRUBIN NEGATIVE (NEGATIVE); URINE COLOR YELLOW; URINE GLUCOSE (UA) NEGATIVE (NEGATIVE); URINE KETONE NEGATIVE (NEGATIVE); URINE LEUK ESTERASE NEGATIVE (NEGATIVE); URINE NITRITE NEGATIVE (NEGATIVE); URINE PROTEIN NEGATIVE (NEGATIVE)
[2023-01-07] MEDS ORDERED: methaDONE HCL 10 MG TABLET PO SCH (06:00)
[2023-01-07] MEDS ORDERED: methaDONE HCL 40 MG DISPERSABLE TABLET ONE (06:13)
[2023-01-07] MEDS ORDERED: methaDONE HCL 10 MG TABLET ONE (06:14)
[2023-01-07] MEDS ORDERED: diazePAM 5 MG TABLET ONE ×2 (06:14→14:30)
[2023-01-07] MEDS: diazePAM 5 MG TABLET PO SCH ×3 (06:22→21:19)
[2023-01-07 07:25] LABS: BASO % 0.3 % (0-2.0); EOS % 0.3 % (0-4.5); HEMATOCRIT 39.9 % (35.4-49); HEMOGLOBIN 12.8 GM/dL (11.7-16.9); LYMPH % 14.8 % (8-40); MCH 26.8 pg (25.7-33.7); MCHC 32.2 g/dl (32.0-35.9); MEAN CELL VOLUME 83.2 fl (80-96); MEAN PLT VOLUME 7.9 fl (7.5-11.1); NEUT % 80.6 % (42.8-82.8); PLATELET COUNT 365 10^3/uL (134-434); RBC 4.79 M/mm3 (4.00-5.60); RDW 16.5 % (11.9-15.9); WHITE BLOOD COUNT 11.1 K/mm3 (4.0-10.0)
[2023-01-07 07:44] LABS: POTASSIUM 3.8 mmol/L (3.5-5.1)
[2023-01-07 07:47] LABS: CALCIUM 8.1 mg/dL (8.5-10.1)
[2023-01-07 07:48] LABS: ALBUMIN 2.8 g/dl (3.4-5.0); BLOOD UREA NITROGEN 12.3 mg/dL (7-18); MAGNESIUM 2.2 mg/dL (1.8-2.4)
[2023-01-07 07:51] LABS: PHOSPHOROUS 3.6 mg/dL (2.5-4.9)
[2023-01-07 07:53] LABS: BILIRUBIN,TOTAL 0.4 mg/dL (0.2-1); TOT PROT 6.5 g/dl (6.4-8.2)
[2023-01-07 07:54] LABS: CREATININE 0.7 mg/dL (0.55-1.3)
[2023-01-07 09:11] LABS: HIV INTERPRETATION NEGATIVE (NEGATIVE)
[2023-01-07] MEDS: ENOXAPARIN NA (PORCINE) 40 MG/0.4 ML DISP.SYRIN SQ SCH (10:47)
[2023-01-07] MEDS ORDERED: VANCOMYCIN/WATER 1250 MG 1,250 MG/250 ML BAG IVPB SCH (13:00)
[2023-01-07] MEDS: VANCOMYCIN/WATER 1250 MG 1,250 MG/250 ML BAG IVPB SCH (13:20)
[2023-01-07] MEDS ORDERED: methylPREDNISolone NA SUCC 40 MG/1 ML VIAL ONE (14:31)
[2023-01-07] MEDS: methylPREDNISolone NA SUCC 40 MG/1 ML VIAL IVPUSH SCH (14:41)
[2023-01-07] MEDS ORDERED: CEFTRIAXONE 2 GM/100 ML BAG IVPB ONE (18:35)
[2023-01-07] MEDS: CEFTRIAXONE 2 GM in DEXTROSE 5%-WATER 100 ML IVPB SCH (18:40)
[2023-01-07] MEDS ORDERED: ACETAMINOPHEN 325 MG TABLET (FP) PO PRN (19:15)
[2023-01-07] MEDS ORDERED: ACETAMINOPHEN 1000 MG/100 ML BAG IVPB PRN (20:16)
[2023-01-07] MEDS: ALBUTEROL SO4 2.5/IPRATROPIUM 0.5 INH SOL 3 ML VIAL.NEB. NEB SCH (20:30)
[2023-01-07] MEDS: oxyCODONE HCL 5 MG TABLET PO PRN (21:22)
[2023-01-08] MEDS: VANCOMYCIN/WATER 1250 MG 1,250 MG/250 ML BAG IVPB SCH ×2 (00:22→12:11)
[2023-01-08] MEDS: oxyCODONE HCL 5 MG TABLET PO PRN ×3 (05:42→18:58)
[2023-01-08] MEDS: ALBUTEROL SO4 2.5/IPRATROPIUM 0.5 INH SOL 3 ML VIAL.NEB. NEB SCH ×5 (08:05→20:20)
[2023-01-08 08:34] LABS: BASO % 0.3 % (0-2.0); EOS % 0.5 % (0-4.5); HEMOGLOBIN 13.1 GM/dL (11.7-16.9); LYMPH % 23.1 % (8-40); MCH 27.4 pg (25.7-33.7); MCHC 32.7 g/dl (32.0-35.9); MEAN CELL VOLUME 83.8 fl (80-96); MEAN PLT VOLUME 7.7 fl (7.5-11.1); MONO % 4.2 % (3.8-10.2); NEUT % 71.9 % (42.8-82.8); PLATELET COUNT 391 10^3/uL (134-434); RBC 4.77 M/mm3 (4.00-5.60); RDW 16.6 % (11.9-15.9); WHITE BLOOD COUNT 9.6 K/mm3 (4.0-10.0)
[2023-01-08 08:50] LABS: POTASSIUM 4.4 mmol/L (3.5-5.1)
[2023-01-08 08:58] LABS: ALBUMIN 2.8 g/dl (3.4-5.0); BLOOD UREA NITROGEN 12.5 mg/dL (7-18); CALCIUM 8.5 mg/dL (8.5-10.1)
[2023-01-08 09:00] LABS: CREATININE 0.7 mg/dL (0.55-1.3)
[2023-01-08 09:03] LABS: BILIRUBIN,TOTAL 0.3 mg/dL (0.2-1); TOT PROT 6.5 g/dl (6.4-8.2)
[2023-01-08] MEDS: diazePAM 5 MG TABLET PO SCH ×2 (09:33→22:41)
[2023-01-08] MEDS: methylPREDNISolone NA SUCC 40 MG/1 ML VIAL IVPUSH SCH (09:35)
[2023-01-08] MEDS: ENOXAPARIN NA (PORCINE) 40 MG/0.4 ML DISP.SYRIN SQ SCH (09:35)
[2023-01-08] MEDS: CEFTRIAXONE 2 GM in DEXTROSE 5%-WATER 100 ML IVPB SCH (09:36)
[2023-01-08] MEDS ORDERED: ALBUTEROL SO4 0.083% IH SOL 2.5 MG/3 ML VIAL.NEB. NEB PRN (12:10)
[2023-01-08 16:48] VITALS: BMI 19.8
[2023-01-08] MEDS ORDERED: hydrOXYzine PAMOATE 25 MG CAPSULE (FP) PO ONE (17:45)
[2023-01-09] MEDS: VANCOMYCIN/WATER 1250 MG 1,250 MG/250 ML BAG IVPB SCH (00:54)
[2023-01-09] MEDS: oxyCODONE HCL 5 MG TABLET PO PRN ×2 (01:16→10:23)
[2023-01-09] MEDS: ALBUTEROL SO4 2.5/IPRATROPIUM 0.5 INH SOL 3 ML VIAL.NEB. NEB SCH ×2 (08:16→11:31)
[2023-01-09 08:47] VITALS: BP 114/66; PULSE 69; RESP 17; TEMP 98.4
[2023-01-09 09:31] LABS: HEMATOCRIT 40.1 % (35.4-49); HEMOGLOBIN 13.7 GM/dL (11.7-16.9); MCH 28.2 pg (25.7-33.7); MCHC 34.2 g/dl (32.0-35.9); MEAN CELL VOLUME 82.4 fl (80-96); MEAN PLT VOLUME 7.5 fl (7.5-11.1); PLATELET COUNT 421 10^3/uL (134-434); RBC 4.86 M/mm3 (4.00-5.60); RDW 16.9 % (11.9-15.9)
[2023-01-09] MEDS ORDERED: NICOTINE 14 MG/24 HOURS TOPICAL PATCH TD SCH (10:00)
[2023-01-09] MEDS ORDERED: diazePAM 5 MG TABLET PO ONE (10:00)
[2023-01-09 10:14] LABS: BLOOD UREA NITROGEN 19.9 mg/dL (7-18)
[2023-01-09] MEDS: ENOXAPARIN NA (PORCINE) 40 MG/0.4 ML DISP.SYRIN SQ SCH (10:18)
[2023-01-09] MEDS: CEFTRIAXONE 2 GM in DEXTROSE 5%-WATER 100 ML IVPB SCH (10:19)
[2023-01-09] MEDS: methylPREDNISolone NA SUCC 40 MG/1 ML VIAL IVPUSH SCH (10:20)
[2023-01-09 10:26] LABS: ALBUMIN 3.1 g/dl (3.4-5.0); CALCIUM 8.7 mg/dL (8.5-10.1)
[2023-01-09 10:28] LABS: CREATININE 0.8 mg/dL (0.55-1.3)
[2023-01-09 10:31] LABS: TOT PROT 7.1 g/dl (6.4-8.2)
[2023-01-09 10:40] LABS: BILIRUBIN,TOTAL 0.4 mg/dL (0.2-1)
== END 2023-01-09 12:24 | disposition home or self-care (01) | DRG 139 ==
LOC: JER 17:39 → JERBED 23:56 → J4S 01-07 18:47
PROVIDERS: ADMIT Internal Medicine; ATTEND Internal Medicine
DX: J13 Pneumonia due to Streptococcus pneumoniae (principal); F11.20 Opioid dependence, uncomplicated; F14.10 Cocaine abuse, uncomplicated; F17.210 Nicotine dependence, cigarettes, uncomplicated; Z59.00 Homelessness unspecified; F19.10 Other psychoactive substance abuse, uncomplicated; L03.113 Cellulitis of right upper limb; I10 Essential (primary) hypertension; E78.5 Hyperlipidemia, unspecified; F41.9 Anxiety disorder, unspecified; F41.0 Panic disorder [episodic paroxysmal anxiety]; F32.A Depression, unspecified
CPT/HCPCS: 0241U-QW; 36415; 71046-TC-FY; 71275-TC; 73130-TC-RT-FY; 80053; 81003; 82550; 82553; 83735; 83880; 84100; 84484; 85025; 85027; 85379; 85610; 85730; 86850; 86900; 86901; 87040; 87081; 87086; 87389; 87899; 93005; 93010; 94640; 99285-25; Q9967

== ENCOUNTER 2023-09-03 12:53 | Inpatient (IN) | payer OTHER ==
[2023-09-03 14:03] VITALS: BMI 25.0
[2023-09-03] MEDS ORDERED: IBUPROFEN 600 MG TABLET (FP) PO PRN (16:17)
[2023-09-03] MEDS ORDERED: ACETAMINOPHEN 325 MG TABLET (FP) PO PRN (16:17)
[2023-09-03] MEDS ORDERED: ONDANSETRON *ODT* 4 MG TABLET SL PRN (16:17)
[2023-09-03] MEDS ORDERED: BENZOCAINE/MENTHOL (CHLORASEPTIC ) LOZENGE MM PRN (16:17)
[2023-09-03] MEDS ORDERED: NALOXONE HCL 0.4 MG/ML VIAL IM PRN (16:17)
[2023-09-03] MEDS ORDERED: IBUPROFEN 400 MG TABLET (FP) PO PRN (16:17)
[2023-09-03] MEDS ORDERED: DICYCLOMINE HCL 10 MG CAPSULE PO PRN (16:17)
[2023-09-03] MEDS ORDERED: hydrOXYzine PAMOATE 25 MG CAPSULE (FP) PO PRN (16:17)
[2023-09-03] MEDS ORDERED: guaiFENesin 600 MG TABLET.ER (FP) PO PRN (16:17)
[2023-09-03] MEDS ORDERED: POLYETHYLENE GLYCOL (HEALTHYLAX) 3350 17 GM PACKET PO PRN (16:17)
[2023-09-03] MEDS ORDERED: NALOXONE (NARCAN) HCL 4 MG/0.1 ML SPRAY NS PRN (16:17)
[2023-09-03] MEDS ORDERED: BENZONATATE 200 MG CAPSULE PO PRN (16:17)
[2023-09-03] MEDS ORDERED: MAG HYDROX/AL HYDROX/SIMETH 30 ML UNIT-DOSE CUP PO PRN (16:17)
[2023-09-03] MEDS ORDERED: LOPERAMIDE HCL 2 MG CAPSULE PO PRN (16:17)
[2023-09-03] MEDS ORDERED: BISMUTH SUBSALICYLATE 524 MG/30 ML PO PRN (16:17)
[2023-09-03] MEDS ORDERED: MAGNESIUM HYDROX 2400MG/30ML ORAL SUSPENSION 30 ML CUP PO PRN (16:17)
[2023-09-03] MEDS ORDERED: diazePAM 5 MG TABLET ONE (17:57)
[2023-09-03] MEDS: diazePAM 5 MG TABLET PO SCH (17:59)
[2023-09-03] MEDS: MELATONIN 5 MG TABLETS PO SCH (22:36)
[2023-09-03] MEDS: METHOCARBAMOL 500 MG TABLET PO PRN (22:36)
[2023-09-03] MEDS: THIAMINE 100 MG TABLET PO SCH (22:38)
[2023-09-04] MEDS ORDERED: methaDONE HCL 10 MG TABLET PO SCH (09:30)
[2023-09-04] MEDS: PRENATAL VITAMINS W/ FOLIC ACID TABLET (FP) PO SCH (09:51)
[2023-09-04 12:51] LABS: HEMATOCRIT 35.7 % (35.4-49); HEMOGLOBIN 12.1 GM/dL (11.7-16.9); MCH 29.5 pg (25.7-33.7); MCHC 33.7 g/dl (32.0-35.9); MEAN CELL VOLUME 87.4 fl (80-96); MEAN PLT VOLUME 8.6 fl (7.5-11.1); PLATELET COUNT 259 10^3/uL (134-434); RBC 4.09 M/mm3 (4.00-5.60); RDW 15.5 % (11.9-15.9); WHITE BLOOD COUNT 6.9 K/mm3 (4.0-10.0)
[2023-09-04 12:53] LABS: CHLORIDE 105 mmol/L (98-107); POTASSIUM 4.6 mmol/L (3.5-5.1); SODIUM 140 mmol/L (136-145)
[2023-09-04 12:56] LABS: GLUCOSE,RANDOM 98 mg/dL (74-106)
[2023-09-04 13:03] LABS: BLOOD UREA NITROGEN 21.8 mg/dL (7-18)
[2023-09-04 13:04] LABS: ANION GAP 5 mmol/L (4-13); CALCIUM 8.1 mg/dL (8.5-10.1); CO2 30 mmol/L (21-32)
[2023-09-04 13:05] LABS: ALBUMIN 3.1 g/dl (3.4-5.0)
[2023-09-04 13:06] LABS: CREATININE 0.8 mg/dL (0.55-1.3); SGOT/AST 21 U/L (15-37); SGPT/ALT 22 U/L (13-61)
[2023-09-04 13:08] LABS: TOT PROT 6.5 g/dl (6.4-8.2)
[2023-09-04 13:09] LABS: ALK PHOS 111 U/L (45-117); BILIRUBIN,TOTAL 0.2 mg/dL (0.2-1)
[2023-09-05] MEDS: diazePAM 5 MG TABLET PO SCH (06:19)
[2023-09-05] MEDS: diazePAM 5 MG TABLET PO PRN (11:07)
[2023-09-05] MEDS: hydrOXYzine PAMOATE 25 MG CAPSULE (FP) PO PRN (18:45)
[2023-09-06] MEDS: diazePAM 5 MG TABLET PO SCH (06:41)
[2023-09-06] MEDS: METHOCARBAMOL 500 MG TABLET PO PRN (09:50)
[2023-09-07] MEDS: diazePAM 5 MG TABLET PO ONE (05:24)
[2023-09-07 09:35] VITALS: BP 132/68; PULSE 84; RESP 16; TEMP 96.9
== END 2023-09-07 09:05 | disposition home or self-care (01) | DRG 773 ==
LOC: YASAS 12:53 → Y6N 17:47
PROVIDERS: ADMIT Allergy & Immunology; ATTEND Surgery
PROC: HZ2ZZZZ Detoxification Services for Substance Abuse Treatment (ICD-10-PCS; principal; 2023-09-03)
DX: F13.230 Sedative, hypnotic or anxiolytic dependence with withdrawal, uncomplicated (principal); F11.20 Opioid dependence, uncomplicated; F14.20 Cocaine dependence, uncomplicated; F12.20 Cannabis dependence, uncomplicated; F17.210 Nicotine dependence, cigarettes, uncomplicated; F19.282 Other psychoactive substance dependence with psychoactive substance-induced sleep disorder; F19.24 Other psychoactive substance dependence with psychoactive substance-induced mood disorder; F31.9 Bipolar disorder, unspecified; F41.9 Anxiety disorder, unspecified
CPT/HCPCS: 36415; 80053; 80305; 80307; 85027; 86780; 93005; 93010

== ENCOUNTER 2023-09-30 10:30 | Inpatient (IN) | payer OTHER ==
[2023-09-30 10:48] VITALS: RESP 16; BMI 25.4
[2023-09-30] MEDS ORDERED: LOPERAMIDE HCL 2 MG CAPSULE PO PRN (11:13)
[2023-09-30] MEDS ORDERED: MAGNESIUM HYDROX 2400MG/30ML ORAL SUSPENSION 30 ML CUP PO PRN (11:13)
[2023-09-30] MEDS ORDERED: ACETAMINOPHEN 325 MG TABLET (FP) PO PRN (11:13)
[2023-09-30] MEDS ORDERED: P-EPHED 60MG/TRIPROLIDI 2.5MG TABLET PO PRN (11:13)
[2023-09-30] MEDS ORDERED: BENZOCAINE/MENTHOL (CHLORASEPTIC ) LOZENGE MM PRN (11:13)
[2023-09-30] MEDS ORDERED: IBUPROFEN 400 MG TABLET (FP) PO PRN (11:13)
[2023-09-30] MEDS ORDERED: METHOCARBAMOL 500 MG TABLET PO PRN (11:13)
[2023-09-30] MEDS ORDERED: NICOTINE POLACRILEX 2 MG LOZENGE BC PRN (11:13)
[2023-09-30] MEDS ORDERED: IBUPROFEN 600 MG TABLET (FP) PO PRN (11:13)
[2023-09-30] MEDS ORDERED: MAG HYDROX/AL HYDROX/SIMETH 30 ML UNIT-DOSE CUP PO PRN (11:13)
[2023-09-30] MEDS ORDERED: NICOTINE POLACRILEX 2 MG GUM BUC PRN (11:13)
[2023-09-30] MEDS ORDERED: NALOXONE HCL 0.4 MG/ML VIAL IVPUSH PRN (11:13)
[2023-09-30] MEDS ORDERED: NALOXONE (NARCAN) HCL 4 MG/0.1 ML SPRAY NS PRN (11:13)
[2023-09-30] MEDS ORDERED: POLYETHYLENE GLYCOL (HEALTHYLAX) 3350 17 GM PACKET PO PRN (11:13)
[2023-09-30] MEDS ORDERED: guaiFENesin 600 MG TABLET.ER (FP) PO PRN (11:13)
[2023-09-30] MEDS ORDERED: hydrOXYzine PAMOATE 25 MG CAPSULE (FP) PO PRN (11:13)
[2023-09-30] MEDS ORDERED: BENZONATATE 200 MG CAPSULE PO PRN (11:13)
[2023-09-30] MEDS: MELATONIN 5 MG TABLETS PO SCH (21:37)
[2023-09-30] MEDS: THIAMINE 100 MG TABLET PO SCH (21:37)
[2023-10-01] MEDS: methaDONE HCL 10 MG TABLET PO SCH (07:47)
[2023-10-01] MEDS: PRENATAL VITAMINS W/ FOLIC ACID TABLET (FP) PO SCH (09:39)
[2023-10-01 14:20] VITALS: BP 118/73; PULSE 56; TEMP 97.7
[2023-10-01] MEDS: diazePAM 5 MG TABLET PO ONE (14:28)
== END 2023-10-01 15:11 | disposition home or self-care (01) | DRG 772 ==
LOC: YASAS 10:30 → Y3NR 12:19
PROVIDERS: ADMIT Allergy & Immunology; ATTEND Psychiatry & Neurology Pain Medicine
PROC: HZ42ZZZ Group Counseling for Substance Abuse Treatment, Cognitive-Behavioral (ICD-10-PCS; principal; 2023-09-30)
DX: F13.20 Sedative, hypnotic or anxiolytic dependence, uncomplicated (principal); F11.20 Opioid dependence, uncomplicated; F17.210 Nicotine dependence, cigarettes, uncomplicated; F31.9 Bipolar disorder, unspecified; Z86.69 Personal history of other diseases of the nervous system and sense organs
CPT/HCPCS: 0241U-QW; 80305; 87811

== ENCOUNTER 2023-10-01 15:22 | Inpatient (IN) | payer OTHER ==
[2023-10-01] MEDS ORDERED: ACETAMINOPHEN 325 MG TABLET (FP) PO PRN (16:21)
[2023-10-01] MEDS ORDERED: BISMUTH SUBSALICYLATE 524 MG/30 ML PO PRN (16:21)
[2023-10-01] MEDS ORDERED: MAG HYDROX/AL HYDROX/SIMETH 30 ML UNIT-DOSE CUP PO PRN (16:21)
[2023-10-01] MEDS ORDERED: guaiFENesin 600 MG TABLET.ER (FP) PO PRN (16:21)
[2023-10-01] MEDS ORDERED: IBUPROFEN 400 MG TABLET (FP) PO PRN (16:21)
[2023-10-01] MEDS ORDERED: MAGNESIUM HYDROX 2400MG/30ML ORAL SUSPENSION 30 ML CUP PO PRN (16:21)
[2023-10-01] MEDS ORDERED: LOPERAMIDE HCL 2 MG CAPSULE PO PRN (16:21)
[2023-10-01] MEDS ORDERED: DICYCLOMINE HCL 10 MG CAPSULE PO PRN (16:21)
[2023-10-01] MEDS ORDERED: BENZONATATE 200 MG CAPSULE PO PRN (16:21)
[2023-10-01] MEDS ORDERED: NALOXONE (NARCAN) HCL 4 MG/0.1 ML SPRAY NS PRN (16:21)
[2023-10-01] MEDS ORDERED: IBUPROFEN 600 MG TABLET (FP) PO PRN (16:21)
[2023-10-01] MEDS ORDERED: NALOXONE HCL 0.4 MG/ML VIAL IM PRN (16:21)
[2023-10-01] MEDS ORDERED: ONDANSETRON *ODT* 4 MG TABLET SL PRN (16:21)
[2023-10-01] MEDS ORDERED: BENZOCAINE/MENTHOL (CHLORASEPTIC ) LOZENGE MM PRN (16:21)
[2023-10-01] MEDS ORDERED: POLYETHYLENE GLYCOL (HEALTHYLAX) 3350 17 GM PACKET PO PRN (16:21)
[2023-10-01] MEDS: diazePAM 5 MG TABLET PO SCH (17:10)
[2023-10-01] MEDS: THIAMINE 100 MG TABLET PO SCH (22:15)
[2023-10-01] MEDS: MELATONIN 5 MG TABLETS PO SCH (22:15)
[2023-10-01] MEDS: METHOCARBAMOL 500 MG TABLET PO PRN (22:16)
[2023-10-01] MEDS: hydrOXYzine PAMOATE 25 MG CAPSULE (FP) PO PRN (22:18)
[2023-10-02] MEDS ORDERED: methaDONE HCL 40 MG DISPERSABLE TABLET PO SCH (06:00)
[2023-10-02] MEDS: PRENATAL VITAMINS W/ FOLIC ACID TABLET (FP) PO SCH (09:44)
[2023-10-02] MEDS: diazePAM 5 MG TABLET PO PRN (13:21)
[2023-10-02 14:29] LABS: CHLORIDE 104 mmol/L (98-107); POTASSIUM 4.4 mmol/L (3.5-5.1); SODIUM 140 mmol/L (136-145)
[2023-10-02 14:32] LABS: HEMATOCRIT 38.2 % (35.4-49); HEMOGLOBIN 13.1 GM/dL (11.7-16.9); MCH 29.7 pg (25.7-33.7); MCHC 34.1 g/dl (32.0-35.9); MEAN PLT VOLUME 8.8 fl (7.5-11.1); PLATELET COUNT 210 10^3/uL (134-434); RBC 4.39 M/mm3 (4.00-5.60); WHITE BLOOD COUNT 4.8 K/mm3 (4.0-10.0)
[2023-10-02 14:40] LABS: GLUCOSE,RANDOM 98 mg/dL (74-106)
[2023-10-02 14:42] LABS: ALBUMIN 3.4 g/dl (3.4-5.0); CALCIUM 8.8 mg/dL (8.5-10.1)
[2023-10-02 14:43] LABS: ANION GAP 5 mmol/L (4-13); CO2 31 mmol/L (21-32)
[2023-10-02 14:45] LABS: SGOT/AST 18 U/L (15-37); SGPT/ALT 20 U/L (13-61)
[2023-10-02 14:46] LABS: BLOOD UREA NITROGEN 14.1 mg/dL (7-18)
[2023-10-02 14:47] LABS: TOT PROT 6.7 g/dl (6.4-8.2)
[2023-10-02 14:49] LABS: BILIRUBIN,TOTAL 0.3 mg/dL (0.2-1)
[2023-10-02 14:52] LABS: ALK PHOS 91 U/L (45-117)
[2023-10-03] MEDS: diazePAM 5 MG TABLET PO SCH (06:07)
[2023-10-04] MEDS: diazePAM 5 MG TABLET PO SCH (06:05)
[2023-10-05] MEDS: diazePAM 5 MG TABLET PO ONE (06:04)
[2023-10-05 09:08] VITALS: BP 113/70; PULSE 66; RESP 17; TEMP 98
== END 2023-10-05 10:54 | disposition other institution (70) | DRG 773 ==
LOC: YASAS 15:22 → Y3N 15:23
PROVIDERS: ADMIT Allergy & Immunology; ATTEND Surgery
PROC: HZ2ZZZZ Detoxification Services for Substance Abuse Treatment (ICD-10-PCS; principal; 2023-10-01)
DX: F10.230 Alcohol dependence with withdrawal, uncomplicated (principal); F11.20 Opioid dependence, uncomplicated; F13.20 Sedative, hypnotic or anxiolytic dependence, uncomplicated; F14.20 Cocaine dependence, uncomplicated; F12.20 Cannabis dependence, uncomplicated; F17.210 Nicotine dependence, cigarettes, uncomplicated; F31.9 Bipolar disorder, unspecified; M54.50 Low back pain, unspecified; G89.29 Other chronic pain; Z59.02 Unsheltered homelessness
CPT/HCPCS: 36415; 80053; 80307; 85027; 86780; 93005; 93010

== ENCOUNTER 2023-11-20 09:46 | Inpatient (IN) | payer OTHER ==
[2023-11-20] MEDS ORDERED: NICOTINE POLACRILEX 2 MG LOZENGE BC PRN (10:42)
[2023-11-20] MEDS ORDERED: BENZOCAINE/MENTHOL (CHLORASEPTIC ) LOZENGE MM PRN (10:42)
[2023-11-20] MEDS ORDERED: NALOXONE HCL 0.4 MG/ML VIAL IM PRN (10:42)
[2023-11-20] MEDS ORDERED: P-EPHED 60MG/TRIPROLIDI 2.5MG TABLET PO PRN (10:42)
[2023-11-20] MEDS ORDERED: MAGNESIUM HYDROX 2400MG/30ML ORAL SUSPENSION 30 ML CUP PO PRN (10:42)
[2023-11-20] MEDS ORDERED: LOPERAMIDE HCL 2 MG CAPSULE PO PRN (10:42)
[2023-11-20] MEDS ORDERED: guaiFENesin 600 MG TABLET.ER (FP) PO PRN (10:42)
[2023-11-20] MEDS ORDERED: BENZONATATE 200 MG CAPSULE PO PRN (10:42)
[2023-11-20] MEDS ORDERED: POLYETHYLENE GLYCOL (HEALTHYLAX) 3350 17 GM PACKET PO PRN (10:42)
[2023-11-20] MEDS ORDERED: NALOXONE (NARCAN) HCL 4 MG/0.1 ML SPRAY NS PRN (10:42)
[2023-11-20] MEDS ORDERED: NICOTINE POLACRILEX 2 MG GUM BUC PRN (10:42)
[2023-11-20] MEDS ORDERED: MAG HYDROX/AL HYDROX/SIMETH 30 ML UNIT-DOSE CUP PO PRN (10:42)
[2023-11-20] MEDS ORDERED: ACETAMINOPHEN 325 MG TABLET (FP) PO PRN (10:42)
[2023-11-20] MEDS ORDERED: IBUPROFEN 400 MG TABLET (FP) PO PRN (10:42)
[2023-11-20 11:56] VITALS: BMI 28.5
[2023-11-20] MEDS: THIAMINE 100 MG TABLET PO SCH (21:45)
[2023-11-20] MEDS: MELATONIN 5 MG TABLETS PO SCH (21:45)
[2023-11-21 00:15] LABS: PH,URINE 5.5 (5.0-8.0); URINE APPEARANCE TURBID; URINE BILIRUBIN NEGATIVE (NEGATIVE); URINE COLOR YELLOW; URINE GLUCOSE (UA) NEGATIVE (NEGATIVE); URINE KETONE NEGATIVE (NEGATIVE); URINE LEUK ESTERASE NEGATIVE (NEGATIVE); URINE NITRITE NEGATIVE (NEGATIVE); URINE PROTEIN NEGATIVE (NEGATIVE); URINE UROBILINOGEN 0.2 mg/dL (0.2-1.0)
[2023-11-21] MEDS ORDERED: methaDONE HCL 10 MG TABLET PO SCH (06:00)
[2023-11-21] MEDS: SERTRALINE HCL 50 MG TABLET (FP) PO SCH (10:30)
[2023-11-21] MEDS: PRENATAL VITAMINS W/ FOLIC ACID TABLET (FP) PO SCH (10:30)
[2023-11-21 11:25] LABS: HEMOGLOBIN 12.8 GM/dL (11.7-16.9); MCH 28.3 pg (25.7-33.7); MCHC 32.7 g/dl (32.0-35.9); MEAN CELL VOLUME 86.4 fl (80-96); MEAN PLT VOLUME 8.6 fl (7.5-11.1); PLATELET COUNT 211 10^3/uL (134-434); RBC 4.51 M/mm3 (4.00-5.60); RDW 15.2 % (11.9-15.9); WHITE BLOOD COUNT 8.7 K/mm3 (4.0-10.0)
[2023-11-21 11:29] LABS: POTASSIUM 4.6 mmol/L (3.5-5.1)
[2023-11-21 11:37] LABS: ALBUMIN 3.7 g/dl (3.4-5.0)
[2023-11-21 11:38] LABS: BLOOD UREA NITROGEN 25.4 mg/dL (7-18); CALCIUM 8.9 mg/dL (8.5-10.1)
[2023-11-21 11:39] LABS: BILIRUBIN,TOTAL 0.5 mg/dL (0.2-1); TOT PROT 7.1 g/dl (6.4-8.2)
[2023-12-01] MEDS: IBUPROFEN 600 MG TABLET (FP) PO PRN (09:51)
[2023-12-01] MEDS ORDERED: BENZONATATE 200 MG CAPSULE PO PRN (11:28)
[2023-12-01] MEDS ORDERED: guaiFENesin 600 MG TABLET.ER (FP) PO PRN (11:28)
[2023-12-02] MEDS: KETOCONAZOLE 2% CREAM - 60GM TUBE TP SCH (14:17)
[2023-12-09] MEDS: ONDANSETRON *ODT* 4 MG TABLET SL PRN (15:58)
[2023-12-09] MEDS: GABAPENTIN 400 MG CAPSULE PO SCH (15:58)
[2023-12-09] MEDS: MAGNESIUM OXIDE 400 MG TABLET (FP) PO SCH (21:18)
[2023-12-11] MEDS ORDERED: NALOXONE (NYS OPIOID OVERDOSE PROGRAM) 4 MG/0.1 ML SPRAY NS PRN (14:48)
[2023-12-11] MEDS: NALOXONE (NYS OPIOID OVERDOSE PROGRAM) 4 MG/0.1 ML SPRAY NS ONE (16:10)
[2023-12-13] MEDS ORDERED: TUBERCULIN PPD 5 TU/0.1ML VIAL ID ONE (11:05)
[2023-12-17 10:50] VITALS: BP 123/73; PULSE 77; RESP 18; TEMP 98
== END 2023-12-17 10:10 | disposition home or self-care (01) | DRG 772 ==
LOC: YASAS 09:46 → Y3NR 13:04 → Y3W 11-21 12:40
PROVIDERS: ADMIT Psychiatry & Neurology Pain Medicine; ATTEND Psychiatry & Neurology Pain Medicine
PROC: HZ42ZZZ Group Counseling for Substance Abuse Treatment, Cognitive-Behavioral (ICD-10-PCS; principal; 2023-11-20)
DX: F11.20 Opioid dependence, uncomplicated (principal); F17.210 Nicotine dependence, cigarettes, uncomplicated; F31.9 Bipolar disorder, unspecified; F19.24 Other psychoactive substance dependence with psychoactive substance-induced mood disorder; F39 Unspecified mood [affective] disorder; F41.9 Anxiety disorder, unspecified; G25.81 Restless legs syndrome; M62.838 Other muscle spasm; R21 Rash and other nonspecific skin eruption; Z59.02 Unsheltered homelessness
CPT/HCPCS: 0241U-QW; 36415; 80053; 80305; 80307; 81003; 85027; 87811; Q0162